=== PATIENT | male | born 1950 | race Caucasian/White ===

== ENCOUNTER → 2016-10-20 | Outpatient (CLI) | payer BC ==
[~2016-10-20] MED LIST: ALPR-412 PO; ASPCH81; SIMV40TA2 PO
--- NOTE | 2016-10-20 15:11 | DIAGNOSTIC IMAGING REPORT ---
RIGHT RIBS UNILATERAL WITH PA CHEST CLINICAL HISTORY: RIB PAIN ON RIGHT SIDE Right trauma. Pain. COMPARISON STUDY: None FINDINGS: Nondisplaced cortical fracture anterior right eighth rib. All remaining ribs are unremarkable. Clear. IMPRESSION: Nondisplaced cortical fracture right eighth rib. Electronically signed by: Rafael Rosenberg M.D. 10/20/2016 3:09 PM Dictated Date/Time: 10/20/2016 3:09 PM
== END | disposition home or self-care (01) ==
LOC: C.RAD1850 14:50
PROVIDERS: ATTEND Physician Assistant
DX: S22.31XA Fracture of one rib, right side, initial encounter for closed fracture (principal); X58.XXXA Exposure to other specified factors, initial encounter

== ENCOUNTER → 2017-04-20 | Outpatient (CLI) | payer BC ==
[2017-04-20 13:18] LABS: BLOOD UREA NITROGEN 18 mg/dl (7-18); BUN/CREATININE RATIO 16.3 (10-20); CALCIUM 9.4 mg/dl (8.5-10.1); CARBON DIOXIDE 21 mmol/L (21-32); CHLORIDE 107 mmol/L (98-107); CHOLESTEROL 160 mg/dl (0-200); GLUCOSE 119 mg/dl (70-99); POTASSIUM 4.2 mmol/L (3.5-5.1); SODIUM 139 mmol/L (136-145); TRIGLYCERIDES 95 mg/dl (0-150); VERY LOW DENSITY LIPOPROT CALC 19 mg/dl
[2017-04-20 13:21] LABS: CHOLESTEROL/HDL RATIO 3.1; HDL CHOLESTEROL 51 mg/dl; LDL CHOLESTEROL CALCULATED 90 mg/dl
[2017-04-20 14:02] LABS: RATIO 4.3 mcg/mg (0-30.0)
== END | disposition home or self-care (01) ==
LOC: C.LAB1850 10:27
PROVIDERS: ATTEND Internal Medicine
DX: E11.9 Type 2 diabetes mellitus without complications (principal)

== ENCOUNTER → 2017-06-16 | Outpatient (CLI) | payer BC ==
[2017-06-16 14:40] LABS: URINE APPEARANCE TURBID (CLEAR); URINE COLOR ORANGE; URINE NITRITE NEG (NEG); URINE SPECIFIC GRAVITY 1.028 (1.000-1.030); UROBILINOGEN NEG (NEG); ZZUR CULT IF INDIC CLEAN CATCH NO
[2017-06-16 14:42] LABS: MANUAL MICROSCOPIC REQUIRED? NO; REVIEW REQ? NO; URINE BILIRUBIN NEG (NEG)
== END | disposition home or self-care (01) ==
LOC: C.LAB1850 12:57
PROVIDERS: ATTEND Internal Medicine
DX: R31.0 Gross hematuria (principal)

== ENCOUNTER → 2017-07-06 | Outpatient (CLI) | payer BC | END | disposition home or self-care (01) | LOC: C.PATHSPEC 17:06 | PROVIDERS: ATTEND Urology | DX: Z31.0 Encounter for reversal of previous sterilization (principal) ==

== ENCOUNTER → 2017-07-22 | Outpatient (CLI) | payer BC ==
[~2017-07-22] MED LIST changes: +ASPCH81X PO; +OXYC7.5T65 PO; +PRS5 PO; +SILD1TAB39 PO; +TAMS0.4C38 PO
[2017-07-22 16:15] LABS: ALBUMIN 3.6 gm/dl (3.4-5.0); ALT/SGPT 40 U/L (12-78); AST/SGOT 17 U/L (15-37); BLOOD UREA NITROGEN 24 mg/dl (7-18); CALCIUM 9.1 mg/dl (8.5-10.1); CARBON DIOXIDE 29 mmol/L (21-32); CREATININE 1.16 mg/dl (0.60-1.40); GLUCOSE 102 mg/dl (70-99); POTASSIUM 4.6 mmol/L (3.5-5.1); SODIUM 139 mmol/L (136-145)
[2017-07-22 16:18] LABS: ALKALINE PHOSPHATASE 82 U/L (45-117); TOTAL PROTEIN 7.3 gm/dl (6.4-8.2)
== END | disposition home or self-care (01) ==
LOC: C.LAB1850 10:55
PROVIDERS: ATTEND Urology
DX: R31.0 Gross hematuria (principal)

== ENCOUNTER → 2017-08-01 | Outpatient (CLI) | payer BC ==
[~2017-08-01] MED LIST changes: -ASPCH81X PO; +OPTIRAY 320 IV PRN; -OXYC7.5T65 PO; -PRS5 PO; -SILD1TAB39 PO; -TAMS0.4C38 PO
--- NOTE | 2017-08-01 11:28 | DIAGNOSTIC IMAGING REPORT ---
ABD/PELVIS COMBO HISTORY: 66 years-old Male R31.0 Gross hematuria with history of recent urinary tract infection COMPARISON: CT abdomen and pelvis 01/29/2008 TECHNIQUE: Multiple axial CT images of the abdomen and pelvis were obtained both with and without the use of 95 mL Optiray 320 utilizing hematuria protocol. A dose lowering technique was used consistent with the principals of MICHELLE. FINDINGS: Linear subsegmental opacities of the inferior segment lingula suggest atelectasis or scarring. There is no pneumatosis or pneumoperitoneum identified. Aortic annular calcifications are noted in addition to coronary arterial disease. The liver, pancreas, gallbladder and adrenal glands are within normal limits. Ill-defined area of low-attenuation of the spleen measuring 6 mm on image 112 series 5 appears unchanged and is likely benign. No suspicious mass lesions of the spleen identified. The precontrast images demonstrate a 6 mm nonobstructing calculus of the inferior pole left kidney. No right-sided renal calculi, ureteral calculi or hydronephrosis. Urine bladder is partially collapsed. The prostate is mildly enlarged with central prostatic calcifications. Phleboliths of the pelvis. No additional focal filling defects identified within the renal collecting systems or ureters. 9 mm low attenuating lesion of the inferior pole right kidney suggests cyst. Moderate atherosclerosis of the aorta. No bulky adenopathy identified. There is no bowel obstruction or focal bowel wall thickening identified. Moderate colonic diverticulosis without diverticulitis, notably within the sigmoid colon. Normal appendix. Fat filled periumbilical hernia is noted, diastases 1.6 cm. Remote burst fracture of T8 is only partially imaged. Bones appear intact. IMPRESSION: 1. 6 mm nonobstructing calculus of the inferior pole left kidney. No evidence of obstructive uropathy or ureteral calculi. 2. Mild prostamegaly. 3. Fat filled periumbilical hernia, diastases 1.6 cm. 4. Moderate sigmoid colon diverticulosis without diverticulitis. The above report was generated using voice recognition software. It may contain grammatical, syntax or spelling errors. Electronically signed by: Cm Garza M.D. 08/01/2017 11:27 AM Dictated Date/Time: 08/01/2017 11:15 AM
== END | disposition home or self-care (01) ==
LOC: C.CTS 10:40
PROVIDERS: ATTEND Urology
DX: R31.0 Gross hematuria (principal)

== ENCOUNTER → 2018-02-21 | Outpatient (CLI) | payer BC ==
[~2018-02-21] MED LIST changes: -ALPR-412 PO; -ASPCH81; +ASPCH81X PO; -OPTIRAY 320 IV PRN; +OXYC7.5T65 PO; +PRS5 PO; +SILD1TAB39 PO; +TAMS0.4C38 PO
--- NOTE | 2018-02-21 14:07 | DIAGNOSTIC IMAGING REPORT ---
KUB CLINICAL HISTORY: Nephrolithiasis. FINDINGS: 2 AP supine abdominal radiograph is are compared to study dated 02/10/2018 and correlated with abdominal CT dated 01/02/2018. There is a nonobstructed abdominal bowel gas pattern. No calcifications are seen projecting over either kidney. A 4 mm calculus is again seen projecting over the left vesicoureteral junction. Additional pelvic phleboliths are observed. The bony structures appear intact. IMPRESSION: A 4 mm calculus is again seen projecting over the left vesicoureteral junction. Electronically signed by: Chandler Silver M.D. 02/21/2018 2:06 PM Dictated Date/Time: 02/21/2018 2:04 PM
== END | disposition home or self-care (01) ==
LOC: C.RADBC 13:41
PROVIDERS: ATTEND Urology
DX: N20.0 Calculus of kidney (principal)

== ENCOUNTER 2024-08-30 09:47 | Observation (INO) ==
--- NOTE | 2024-08-30 09:59 | Emergency Department Note ---
Impression & Plan Closed fracture of manubrium, Fall ED Provider Note CHIEF COMPLAINT: Fall HISTORY OF PRESENTING ILLNESS: This 73-year-old male patient presents to the emergency department with his fiance for evaluation after a fall. The patient states that he was in his socks in the laundry room this morning when his foot went out from under him. He landed on his back. He is unsure if he hit his head, but denies loss of consciousness. He is not on any blood thinners, but is on aspirin. He was able to get himself up without a prolonged downtime. He is now complaining of pain in his chest. He initially had pain in his back, but that has resolved. He denies any SOB. Denies any chest pain or SOB prior to the fall. Denies any abdominal pain. Denies nausea or vomiting. Denies any pain or injury of his arms or legs. He rates his discomfort a 6/10. He denies any significant cardiac history other than a "functional murmur." The patient states it was a mechanical fall and denies any symptoms prior to the fall. REVIEW OF SYSTEMS: See HPI for pertinent positives and pertinent negatives. ALLERGIES: Penicillin - rash when he was young MEDICATIONS: Aspirin, Simvastatin PAST MEDICAL HISTORY: See below PHYSICAL EXAM: VITALS: Vitals are noted on the nurse's note and reviewed by myself. GENERAL: No acute distress, non-diaphoretic. SKIN: The skin was without obvious lacerations or abrasions. Capillary reflex less than 2 seconds. HEAD: Normocephalic. No scalp tenderness or step-offs felt. EYES: Pupils equal round and reactive to light and accommodation. Conjunctivae without injection, sclerae without icterus. Extraocular movements intact. No nystagmus. NOSE: Patent without discharge. No sinus tenderness. No septal hematoma or bleeding. MOUTH: Mucous membranes moist. Pharynx without erythema or exudate. Uvula midline. Airway patent. Tongue does not deviate. NECK: Supple without nuchal rigidity. Cervical spine is nontender. Full range of motion of the neck without tenderness. HEART: Regular rate and rhythm without murmurs gallops or rubs. LUNGS: Clear to auscultation bilaterally without wheezes, rales or rhonchi. No retractions or accessory muscle use. CHEST: The patient is tender to palpation over the sternum as well as the right anterior upper chest wall. No fracture crepitus or flail chest noted. ABDOMEN: Positive bowel sounds x 4. Normal tympanic percussion. Soft, nontender, without masses or organomegaly. No guarding or rebound tenderness. No upper abdominal tenderness to palpation. MUSCULOSKELETAL: No tenderness of the thoracic or lumbar spine or paraspinal muscles. No tenderness with pelvic rocking. Full range of motion without tenderness to palpation in all extremities. Normal gait. Strength 5/5 throughout. Peripheral pulses 2+. NEURO: Patient was alert and oriented to person place and time. Normal mental status exam. Normal sensation to light and sharp touch. Cerebellar function intact. No focal neurological deficits. DIFFERENTIAL DIAGNOSIS: Differential diagnosis includes concussion, contusion, fracture, subluxation, dislocation, subdural hematoma, epidural hematoma, intraparenchymal hemorrhage, contusion, ligamentous injury, neurovascular, compartment syndrome, rhabdomyolysis, intra-abdominal injury, splenic rupture, hepatic rupture, rib fractures, cardiac contusion, pneumothorax, hemothorax, cardiac tamponade, intrathoracic injury, neurologic, as well as other pathologies. ED COURSE AND MEDICAL DECISION MAKING: HISTORY FROM INDEPENDENT HISTORIAN: Additional history obtained from the patient's MEDICATIONS GIVEN: Tylenol 1000 mg IV. MONITOR: Continuous cardiac cath lab manager: Order was placed for continuous cardiac cath lab manager. Patient was placed on the cardiac cath lab manager and continuous pulse ox. Patient was noted to be in normal sinus rhythm at an initial rate of 78 bpm per my interpretation. EKG: EKG was interpreted by myself as normal sinus rhythm at 69 bpm with no acute ST or T wave changes. INTERPRETATION OF LABS: I interpreted the labs with full lab results as below in the lab section of this note. Laboratory results pertinent to the emergent complaint are discussed in the MDM section below. The patient was advised to follow up with their PCP and/or specialist(s) for further outpatient monitoring and management of any abnormal results. INTERPRETATION OF IMAGING: Imaging studies were interpreted by myself and read by radiology as per the imaging section of this note. The patient was advised to follow up with their PCP and/or specialist(s) for further outpatient management of any non-emergent abnormal findings. Chest x-ray showed no acute cardiopulmonary abnormalities. CT scan of the head without contrast was negative for acute intracranial abnormality. CT scan of the cervical spine without contrast was negative for acute fracture or subluxation. There are mild superior endplate compression deformities at T1- T3 which are new since 2015, but appear to be chronic. CT scan of the chest with IV contrast showed an acute nondisplaced right manubrial fracture which also extends through the right first costal cartilage. There is acute right second costochondral cartilage fracture. No pneumothorax. Small associated anterior mediastinal hematoma. No active extravasation. No additional acute traumatic findings noted. CONSULTATIONS: Dr. Dugan of trauma surgery at [facility]. On-call hospitalist. [facility] SUMMARY: I examined the patient. The patient stated that he slipped on the laundry room floor in his socks and fell onto his back. The patient states it was a mechanical fall and had no symptoms prior to the fall. He initially had back pain, but that has resolved. No tenderness to palpation of the back on exam. The patient continues with mild anterior chest wall pain. He is unsure whether he hit his head, but there was no loss of consciousness. He is not on any blood thinners. The patient denies any abdominal pain and there is no abdominal tenderness to palpation on exam. An IV lock was placed and labs were drawn. The patient was given Tylenol 1000 mg IV with improvement of his pain. White blood cell count normal at 9.67. Hemoglobin low, but stable at 12.9. Platelet count normal at 278. Coags were normal. I-STAT labs were obtained prior to CT scan. Glucose 120, but CMP otherwise normal. High-sensitivity troponin x 2 were normal. Lipase normal. Urinalysis with 1+ glucose, trace blood, and 3-5 red blood cells. Chest x-ray showed no acute cardiopulmonary abnormalities. CT scan of the head without contrast was negative for acute intracranial abnormality. CT scan of the cervical spine without contrast was negative for acute fracture or subluxation. There are mild superior endplate compression deformities at T1- T3 which are new since 2015, but appear to be chronic. CT scan of the chest with IV contrast showed an acute nondisplaced right manubrial fracture which also extends through the right first costal cartilage. There is acute right second costochondral cartilage fracture. No pneumothorax. Small associated anterior mediastinal hematoma. No active extravasation. No additional acute traumatic findings noted. I spoke with Dr. Dugan of trauma surgery at the [facility] in regards to the patient's CT scan findings. She stated that the patient does not need to be transferred at this time. She states that the fractures on the CT scan do not require any intervention other than pain control and incentive spirometer as an outpatient. However, she did recommend the patient be monitored for low risk of developing a blunt cardiac injury. She stated if the patient has normal repeat troponin, stable repeat hemoglobins, and no arrhythmias on the cardiac cath lab manager, he could be discharged home with symptomatic treatment. I had a meaningful discussion about this patient with Dr. Davis who agrees with my assessment and the treatment plan. I spoke with the on-call hospitalist who agreed to admit this patient for further evaluation and treatment. Please refer to their dictation for further details. The patient's care was transferred in stable condition. DIAGNOSIS: Right manubrial fracture extending through the right first costal cartilage and right second costochondral cartilage fracture Mechanical fall Past Med/Surg History Problem List (Updated 08/30/24 @ 18:30 by Martina Zuniga PA-C) Fall (Acute) Closed fracture of manubrium (Acute) Sternal fracture Anemia, mild Hypersomnia Snoring History of colon polyps Retained foreign body (Acute) Hernia Ureteric stone (Acute) Left knee pain (Acute) Insomnia (Acute) Inhibited sexual excitement (Acute) Gross hematuria (Acute) Dysthymic disorder (Acute) History of kidney stones Right leg numbness Gout hx Dyslipidemia Benign prostatic hyperplasia with urinary obstruction (Acute) Diabetes mellitus type II, controlled (Acute) diet controlled Medical History History of COVID-19 Kidney stones Tinnitus of both ears Migraine Tick bite Surgical History S/P adenoidectomy Lump in neck History of lithotripsy History of colonoscopy History of tooth extraction History of tonsillectomy Family History Mother No pertinent family history Father No pertinent family history Grandfather (Maternal) Myocardial infarction Uncle Myocardial infarction Son Colitis Denies family history of Ovarian cancer Prostate cancer Breast cancer Colorectal cancer Social History Smoking Status: Never smoker Second Hand Exposure: No; Do You Dip or Chew Tobacco: No; Hx Alcohol Use: Yes Alcohol type: beer Hx Substance Use: No Preferred Language: Tuvaluan Communication Ability: Effective Visual Impairment: No Limitations Hearing Ability: Normal Manager Unix Required: No Beliefs That Will Affect Care: None marital status: / Current Living Situation: Significant Other current occupational status: retired Feels Safe at Home: Yes Childhood Exposure to Second-Hand Smoke: No Dental Care, Regularly: Yes Physical Activity Frequency: Daily Seatbelt Use: always Sunscreen Use: Yes Assistive Devices: Glasses Allergies Allergies Allergy/AdvReac Type Severity Reaction Status Date / Time Penicillins Allergy Intermediate Rash Verified 05/15/24 15:03 Home Meds Home Medications Medication Instructions Recorded Confirmed aspirin 81 mg tablet,delayed 81 mg PO HS #0 tabs 01/02/18 08/30/24 release (Ophelia Low Dose Aspirin) multivitamin 1 tab PO QAM 03/17/18 08/30/24 Previous Rx's Medication Instructions Recorded simvastatin 40 mg tablet 40 mg PO HS #90 tabs 12/06/23 sildenafil (pulm.hypertension) 20 20 mg PO UD PRN Sexual Activity 02/01/24 mg tablet #30 tabs Results & Data (ED) Vital Signs Vital Signs - 24 hr 08/30/24 09:55 08/30/24 10:07 08/30/24 10:38 Temperature 36.5 C Temperature Source Oral Pulse Rate 80 76 Pulse Rate [Apical] Pulse Rhythm [Apical] Pulse Strength [Apical] Respiratory Rate 18 Respiratory Effort / Characteristics Respiratory Depth Blood Pressure 179/94 H Blood Pressure [Right Arm] Blood Pressure Mean 122 Blood Pressure Mean [Right Arm] Blood Pressure Position Sitting Blood Pressure Position [Right Arm] Pulse Oximetry 97 96 Oxygen Delivery Method Room Air Room Air Sepsis Recent Fever Within 48 Hours No Sepsis New/Unexplained Change in Mental Status No Sepsis Action Taken by Nursing No Action Required 08/30/24 11:47 08/30/24 13:00 Temperature Temperature Source Pulse Rate Pulse Rate [Apical] 64 62 Pulse Rhythm [Apical] Regular Pulse Strength [Apical] Normal Respiratory Rate 17 17 Respiratory Effort / Characteristics Non-Labored Spontaneous Non-Labored Spontaneous Respiratory Depth Normal Normal Blood Pressure Blood Pressure [Right Arm] 139/69 154/8 H Blood Pressure Mean Blood Pressure Mean [Right Arm] 92 56 Blood Pressure Position Blood Pressure Position [Right Arm] Semi-fowlers Pulse Oximetry 95 95 Oxygen Delivery Method Room Air Room Air Sepsis Recent Fever Within 48 Hours Sepsis New/Unexplained Change in Mental Status Sepsis Action Taken by Nursing Laboratory Data 08/30/24 10:36 08/30/24 10:36 Lab Results 08/30/24 08/30/24 08/30/24 Range/Units 10:36 10:42 13:03 WBC 9.67 (4.8-10.8) K/ul RBC 4.23 L (4.70-6.10) M/uL Hgb 12.9 L (14.0-18.0) g/dl POC Hgb 13.6 L (14.0-18.0) g/dl Hct 39.5 L (42.0-52.0) % POC Hct 40 L (42-52) % MCV 93.4 (80.0-100.0) fL MCH 30.5 (25.0-34.0) pg MCHC 32.7 (32.0-36.0) g/dL RDW Std Deviation 44.2 (36.4-46.3) fL RDW Coeff of Nika 13.1 (11.5-14.5) % Plt Count 278 (130-400) K/uL MPV 9.5 (9.4-12.4) fL Immature Gran % (Auto) 0.5 % Neut % (Auto) 73.9 % Lymph % (Auto) 14.1 % [place] % (Auto) 8.1 % Eos % (Auto) 3.1 % Baso % (Auto) 0.3 % Neut # (Auto) 7.15 H (1.40-6.50) K/uL Lymph # (Auto) 1.36 (1.20-3.40) K/uL [place] # (Auto) 0.78 H (0.11-0.59) K/uL Eos # (Auto) 0.30 (0.00-0.50) K/uL Baso # (Auto) 0.03 (0.00-0.20) K/uL Immature Gran # (Auto) 0.05 (0.01-0.20) K/uL PT 10.2 (9.0-12.0) Seconds INR 0.9 (0.9-1.1) APTT 25 (21-31) Seconds PTT Ratio 0.9 POC Sodium 139 (135-144) mmol/L Sodium 138 (136-145) mmol/L POC Potassium 4.4 (3.3-5.0) mmol/L Potassium 4.4 (3.5-5.1) mmol/L POC Chloride 105 (101-112) mmol/L Chloride 106 (98-107) mmol/L Carbon Dioxide 28 (21-32) mmol/L POC Total CO2 26 (24-31) mmol/L Anion Gap 4 (3-11) POC Anion Gap 14.0 L (16-25) mmol/L POC BUN 19 H (7-18) mg/dl BUN 20 (6-23) mg/dl Creatinine 1.19 (0.6-1.4) mg/dl POC Creatinine 1.2 (0.6-1.3) mg/dl Est Cr Clr Drug Dosing 63.6 ml/min eGFR 64.50 BUN/Creatinine Ratio 16.8 (10-20) Glucose 120 H (70-99(Fasting)) mg/dl POC Glucose (other) 120 H (70-99) mg/dl Calcium 9.5 (8.6-10.3) mg/dl POC Ioniz Calcium Claudia 1.23 (1.12-1.32) mmol/l Total Bilirubin 0.3 (0.2-1.0) mg/dl AST 19 (13-39) U/L ALT 16 (7-52) U/L Alkaline Phosphatase 66 (34-104) U/L Troponin I High Sens 10.8 10.7 (0-20) pg/ml Total Protein 7.2 (6.0-8.3) gm/dl Albumin 4.0 (3.4-5.0) gm/dl Globulin 3.2 (2.5-4.0) gm/dl Albumin/Globulin Ratio 1.3 (0.9-2) Lipase 20 (11-82) U/L Urine Color Yellow Urine Appearance Clear (Clear) Urine pH 7.5 (4.5-7.5) Ur Specific [place] 1.022 (1.000-1.030) Urine Protein Negative (Negative) Urine Glucose (UA) 1+ H (Negative) Urine Ketones Negative (Negative) Urine Blood Trace H (Negative) Urine Nitrite Negative (Negative) Urine Bilirubin Negative (Negative) Urine Urobilinogen Negative (Negative) Ur Leukocyte Esterase Negative (Negative) Urine WBC (Auto) 0-5 (0-5) /hpf Urine RBC (Auto) 3-5 H (0-2) /hpf U Hyaline Cast (Auto) 0-2 (0-2) /lpf U Epithel Cells (Auto) 0-2 (0-2) /hpf Urine Bacteria (Auto) None Seen (None Seen) Administered Medications Discontinued Medications Acetaminophen (Ofirmev) 1,000 mg in 100 mls @ 400 mls/hr IV NOW STA Stop: 08/30/24 10:22 Last Infusion: 08/30/24 12:19 Dose: Infused Documented By: Admin: 08/30/24 10:45 Dose: 400 mls/hr Documented By: EVARISTO Ioversol (Optiray 320 100ml) 94 ml IV ONCE ONE Stop: 08/30/24 11:02 Last Admin: 08/30/24 11:01 Dose: 94 ml Documented By: SWATI Lidocaine (Lidocaine 5% 1 Patch) 1 patch TD NOW STA Stop: 08/30/24 14:19 Last Admin: 08/30/24 15:14 Dose: 1 patch Documented By: SRL Imaging Data Radiologist's Impression: Cervical Spine CT 08/30/24 10:07 CT cervical spine wo con CLINICAL HISTORY: 73 years-old Male with Trauma. Acute neck injury status post fall COMPARISON: Chest CT of same day, cervical spine radiographs 09/28/2023, CT chest 07/04/2015 TECHNIQUE: Multiple axial CT images of the cervical spine were obtained without contrast. A dose lowering technique was utilized adhering to the principles of ALARA. FINDINGS: Mild multilevel intervertebral disc space narrowing with mild to moderate spondylitic spurring and facet arthrosis. There is vacuum disc phenomenon with bridging disc osteophyte complex at the C6-C7 level. Multiple endplate compression at T1-T3 without retropulsion has progressed from the 2015 comparison, likely chronic. Central canal and foraminal narrowing is suboptimally evaluated by CT. The cervical soft tissues appear unremarkable. The visualized lung apices appear clear. IMPRESSION: 1. No acute cervical spine fracture or subluxation. 2. Mild superior endplate compression deformities at T1-T3 are new from 2015, favored to be chronic. ACT 112: Negative or not required by law. The above report was generated using voice recognition software. It may contain grammatical, syntax or spelling errors. Electronically signed by: Dhaval Garza M.D. 08/30/2024 11:[address] 08/30/24 10:07 CT OF THE CHEST WITH IV CONTRAST CLINICAL HISTORY: Fall, chest pain, back pain resolved COMPARISON STUDY: Chest radiograph May 24, 2019. Chest CT July 04, 2015. TECHNIQUE: Following IV administration of 94 mL of Optiray, helical axial images of the chest were obtained. Sagittal and coronal reconstructions were viewed as well as maximal intensity projections on an independent 3-D workstation. Automated exposure control was utilized for the study. A dose lowering technique was utilized adhering to the principles of ALARA. CT DOSE: 2085.84 mGy.cm FINDINGS: There is no evidence for traumatic injury to the thoracic aorta. There is an acute nondisplaced right manubrial fracture. This fracture also extends through the right first costal cartilage. A small associated anterior mediastinal hematoma is present. There is an acute fracture of the right second costal cartilage. Several old right-sided rib fractures are present. There is no pneumothorax or pleural effusion. No pulmonary contusion is present. There are no pulmonary nodules. Old T8 compression fractures unchanged. No acute thoracic spine fractures are present. The heart is mildly enlarged. There is moderate coronary artery calcification. IMPRESSION: 1. Acute nondisplaced right manubrial fracture which also extends through the right first costal cartilage. Acute right second costochondral cartilage fracture. No pneumothorax. Small associated anterior mediastinal hematoma. No active extravasation. 2. No additional acute traumatic findings within the chest. ACT 112: Negative or not required by law. Electronically signed by: Hector Villeda M.D. 08/30/2024 11:36 AM Chest X-Ray 08/30/24 10:07 XR chest 1V portable HISTORY: 73 years-old Male Chest pain, fall acute chest pain status post fall COMPARISON: 01/31/2018 TECHNIQUE: AP view of the chest FINDINGS: Cardiomediastinal and hilar silhouettes are within normal limits. No pneumothorax, pleural effusion or airspace consolidation. Bones appear grossly intact. Spondylitic spurring of the spine. IMPRESSION: No acute process. ACT 112: Negative or not required by law. The above report was generated using voice recognition software. It may contain grammatical, syntax or spelling errors. Electronically signed by: Dhaval Garza M.D. 08/30/2024 10:[address] 08/30/24 10:07 CT head/brain wo con CLINICAL HISTORY: 73 years-old Male with Trauma. Acute head trauma TECHNIQUE: Multiple axial CT images of the head were obtained without contrast. A dose lowering technique was utilized adhering to the principles of ALARA. COMPARISON: 08/16/[address], brain MRI 12/25/2020 FINDINGS: No acute intracranial hemorrhage, midline shift, intracranial mass, hydrocephalus, territorial ischemia or abnormal extra-axial collection. Involutional changes. The calvarium is intact. The paranasal sinuses, mastoid air cells, and middle ear cavities are clear. IMPRESSION: No acute intracranial abnormality or calvarial fracture. ACT 112: Negative or not required by law. The above report was generated using voice recognition software. It may contain grammatical, syntax or spelling errors. Electronically signed by: Dhaval Garza M.D. 08/30/2024 11:25 AM Discharge Plan Visit Data Chief Complaint: Fall Stated Complaint: FALL THIS AM, LANDED ON BACK, CHEST HURTS NOW ED Provider: Zaheer Davis ED Midlevel Provider: Martina Zuniga Discharge Problem: Closed fracture of manubrium, Fall Patient Disposition: Admitted As Inpatient Condition: Good Discharge Instructions Interventions: ED Discharge Assessment Last Done: 08/30/24 15:58 Discharge Problem: Closed fracture of manubrium Qualifiers: Encounter type: initial encounter Qualified Code(s): S22.21XA - Fracture of manubrium, initial encounter for closed fracture Fall Qualifiers: Encounter type: initial encounter Qualified Code(s): W19.XXXA - Unspecified fall, initial encounter
--- NOTE | 2024-08-30 10:30 | XRay Report ---
XR chest 1V portable HISTORY: 73 years-old Male Chest pain, fall acute chest pain status post fall COMPARISON: 01/31/2018 TECHNIQUE: AP view of the chest FINDINGS: Cardiomediastinal and hilar silhouettes are within normal limits. No pneumothorax, pleural effusion o r airspace consolidation. Bones appear grossly intact. Spondylitic spurring of the spine. IMPRESSION: No acute process. ACT 112: Negative or not required by law. The above report was generated using voice recognition software. It may contain grammatical, syntax o r spelling errors. Electronically signed by: Dhaval Garza M.D. 08/30/2024 10:28 AM
[2024-08-30] MEDS: ACETAMINOPHEN 1,000 MG/100 ML VIAL IV STA (10:45)
[2024-08-30 10:54] LABS: iSTAT Creatinine 1.2 mg/dl (0.6-1.3); iSTAT Hemoglobin 13.6 g/dl (14.0-18.0); iSTAT Ionized Calcium 1.23 mmol/l (1.12-1.32); iSTAT Potassium 4.4 mmol/L (3.3-5.0)
[2024-08-30] MEDS: OPTIRAY 320 100ml IV ONE (11:01)
[2024-08-30 11:09] LABS: Appearance Urine Clear (Clear); Bacteria Urine Automated None Seen (None Seen); Bilirubin Urine Negative (Negative); Blood Urine Trace (Negative); Cast Urine Automated 0-2 /lpf (0-2); Color Urine Yellow; Epithelial Cell Urine Auto 0-2 /hpf (0-2); Glucose Urine UA 1+ (Negative); Ketones Urine Negative (Negative); Leukocyte Esterase Urine Negative (Negative); Nitrite Urine Negative (Negative); Protein Urine Negative (Negative); Specific Gravity Urine 1.022 (1.000-1.030); Urobilinogen Urine Negative (Negative); WBC Urine Automated 0-5 /hpf (0-5); pH Urine 7.5 (4.5-7.5)
[2024-08-30 11:12] LABS: Basophils # (auto) 0.03 K/uL (0.00-0.20); Basophils % (auto) 0.3 %; Eosinophils % (auto) 3.1 %; Hematocrit (blood only) 39.5 % (42.0-52.0); Hemoglobin 12.9 g/dl (14.0-18.0); Immature Granulocytes # (auto) 0.05 K/uL (0.01-0.20); Immature Granulocytes % (auto) 0.5 %; Lymphocytes # (auto) 1.36 K/uL (1.20-3.40); Lymphocytes % (auto) 14.1 %; Mean Corpuscular Hemoglobin 30.5 pg (25.0-34.0); Mean Corpuscular Hgb Conc 32.7 g/dL (32.0-36.0); Mean Corpuscular Volume 93.4 fL (80.0-100.0); Mean Platelet Volume 9.5 fL (9.4-12.4); Monocytes # (auto) 0.78 K/uL (0.11-0.59); Monocytes % (auto) 8.1 %; Neutrophils # (auto) 7.15 K/uL (1.40-6.50); Neutrophils % (auto) 73.9 %; Platelet Count 278 K/uL (130-400); RDW Coefficient of Variation 13.1 % (11.5-14.5); RDW Standard Deviation 44.2 fL (36.4-46.3); Red Blood Count 4.23 M/uL (4.70-6.10); White Blood Count 9.67 K/ul (4.8-10.8)
[2024-08-30 11:24] LABS: Albumin Globulin Ratio 1.3 (0.9-2); BUN Creatinine Ratio 16.8 (10-20); Bilirubin,Total 0.3 mg/dl (0.2-1.0); Calcium 9.5 mg/dl (8.6-10.3); Creatinine Clr Calc Pharmacy 63.6 ml/min; Globulin 3.2 gm/dl (2.5-4.0); Potassium 4.4 mmol/L (3.5-5.1); Total Protein 7.2 gm/dl (6.0-8.3)
--- NOTE | 2024-08-30 11:26 | CT Scan Report ---
CT head/brain wo con CLINICAL HISTORY: 73 years-old Male with Trauma. Acute head trauma TECHNIQUE: Multiple axial CT images of the head were obtained without contrast. A dose lowering tech nique was utilized adhering to the principles of ALARA. COMPARISON: 08/16/[address], brain MRI 12/25/2020 FINDINGS: No acute intracranial hemorrhage, midline shift, intracranial mass, hydrocephalus, territorial ischem ia or abnormal extra-axial collection. Involutional changes. The calvarium is intact. The paranasal sinuses, mastoid air cells, and middle ear cavities are clear . IMPRESSION: No acute intracranial abnormality or calvarial fracture. ACT 112: Negative or not required by law. The above report was generated using voice recognition software. It may contain grammatical, syntax o r spelling errors. Electronically signed by: Dhaval Garza M.D. 08/30/2024 11:25 AM
[2024-08-30 11:30] LABS: Troponin I High Sensitivity 10.8 pg/ml (0-20)
--- NOTE | 2024-08-30 11:38 | CT Scan Report ---
CT OF THE CHEST WITH IV CONTRAST CLINICAL HISTORY: Fall, chest pain, back pain resolved COMPARISON STUDY: Chest radiograph May 24, 2019. Chest CT July 04, 2015. TECHNIQUE: Following IV administration of 94 mL of Optiray, helical axial images of the chest were o btained. Sagittal and coronal reconstructions were viewed as well as maximal intensity projections o n an independent 3-D workstation. Automated exposure control was utilized for the study. A dose low ering technique was utilized adhering to the principles of ALARA. CT DOSE: 2085.84 mGy.cm FINDINGS: There is no evidence for traumatic injury to the thoracic aorta. There is an acute nondisp laced right manubrial fracture. This fracture also extends through the right first costal cartilage. A small associated anterior mediastinal hematoma is present. There is an acute fracture of the right second costal cartilage. Several old right-sided rib fractures are present. There is no pneumothorax or pleural effusion. No pulmonary contusion is present. There are no pulmonary nodules. Old T8 compre ssion fractures unchanged. No acute thoracic spine fractures are present. The heart is mildly enlarge d. There is moderate coronary artery calcification. IMPRESSION: 1. Acute nondisplaced right manubrial fracture which also extends through the right first costal cart ilage. Acute right second costochondral cartilage fracture. No pneumothorax. Small associated anterio r mediastinal hematoma. No active extravasation. 2. No additional acute traumatic findings within the chest. ACT 112: Negative or not required by law. Electronically signed by: Hector Villeda M.D. 08/30/2024 11:36 AM
--- NOTE | 2024-08-30 11:39 | CT Scan Report ---
CT cervical spine wo con CLINICAL HISTORY: 73 years-old Male with Trauma. Acute neck injury status post fall COMPARISON: Chest CT of same day, cervical spine radiographs 09/28/2023, CT chest 07/04/2015 TECHNIQUE: Multiple axial CT images of the cervical spine were obtained without contrast. A dose low ering technique was utilized adhering to the principles of ALARA. FINDINGS: Mild multilevel intervertebral disc space narrowing with mild to moderate spondylitic spurr ing and facet arthrosis. There is vacuum disc phenomenon with bridging disc osteophyte complex at the C6-C7 level. Multiple endplate compression at T1-T3 without retropulsion has progressed from the 201 5 comparison, likely chronic. Central canal and foraminal narrowing is suboptimally evaluated by CT. The cervical soft tissues appear unremarkable. The visualized lung apices appear clear. IMPRESSION: 1. No acute cervical spine fracture or subluxation. 2. Mild superior endplate compression deformities at T1-T3 are new from 2015, favored to be chronic. ACT 112: Negative or not required by law. The above report was generated using voice recognition software. It may contain grammatical, syntax o r spelling errors. Electronically signed by: Dhaval Garza M.D. 08/30/2024 11:38 AM
[2024-08-30 11:41] LABS: INR 0.9 (0.9-1.1); Partial Thromboplastin Ratio 0.9; Partial Thromboplastin Time 25 Seconds (21-31); Prothrombin Time 10.2 Seconds (9.0-12.0)
--- NOTE | 2024-08-30 11:47 | Emergency Department Note ---
ED Visit Note I was consulted by the Advanced Practice Provider. I personally made/approved the management plan and take responsibility for the patient management. I performed a substantive portion of the visit. This includes the aspects of: -History/Physical/Personally seeing the patient -MDM .
--- NOTE | 2024-08-30 13:57 | History & Physical Report ---
Date of Service August 30, 2024 Assessment & Plan (1) Sternal fracture: Plan: 73-year-old male with minimal past medical history of hyperlipidemia well- controlled who presents after a mechanical fall when he slipped doing laundry while wearing socks and landed on his back and sustained a first/second rib fracture/manubrial fracture. He is recommended for observation, fractures nondisplaced and patient was not recommended for transfer after evaluation by [facility] trauma team. Fall Mechanical, while wearing socks in the laundry room. No presyncope/syncope CTC-spine: No acute cervical spine fracture or subluxation CTchest with contrast: Acute nondisplaced right manubrial fracture extending through the first costal cartilage. Acute right second costochondral cartilage fracture. No pneumothorax. Small amount of associated mediastinal hematoma. No active extravasation. No additional traumatic findings of the chest. Troponin is normal, EKG sinus CThead: No acute findings Case was reviewed by [facility] trauma surgery Dr. Dugan. Recommended for observation for arrhythmias and agree with repeating troponin, patient does not require transfer at this time. Conservative management. Manubrial fracture, rib fracture CT shows acute nondisplaced right manubrial fracture extending through the first costal cartilage, and right second osteochondral cartilage fracture No flail chest SpO2 is normal on room air Incentive spirometry ordered Multimodal pain control. Tylenol, lidocaine patch ordered Breakthrough oxycodone third line ordered if needed Adequate pain control at time of reassessment Continue incentive spirometry hourly goal 1500 cc Ice affected area Ambulate, ad dianna. as tolerated and out of chair at least 3 times daily with meals Chronic stable issues: BPH: Bladder scan as needed Hyperlipidemia: Continue simvastatin. Aspirin temporarily held due to hematoma. Resume this on discharge if no bleeding complications Prediabetes: No medications, diet controlled. BSG within goal on admission. Trend daily if above 180 then can add SSI DVT prophylaxis: Pharmacal prophylaxis contraindicated, SCDs Disposition: Med/telemetry for arrhythmia monitoring CODE STATUS: Full code Diet: Regular (2) Benign prostatic hyperplasia with urinary obstruction: History of Present Illness Primary Care Provider: Abimael Wilson MD Louie is 73-year-old male with a past medical history of type II DM diet controlled, hyperlipidemia who presents after he slipped while wearing socks in the laundry room without syncope/presyncope and landed on his back reportedly did not hit his chest but who on assessment was found to have a manubrial fracture. Was recommended for observation overnight. Case was reviewed by [facility] trauma surgery Dr. Dugan. Patient was not recommended for transfer. Was recommended for observation for 24 hours for any potential arrhythmia and repeat troponin, otherwise can be managed conservatively and followed for 24 hours and then discharged outpatient follow-up. Patient was subsequently recommended for hospitalist admission. Louie is seen at the bedside. Reports he was doing laundry working in socks when he slipped and fell and struck his back. He did not strike or land on his chest or hit anything on the way down but did have pain on the right upper chest after falling. He is not in any issues with chest pain gets up at 430 every morning walks vigorously and has not had any limiting angina, shortness of breath, or sweating. He takes a aspirin for primary prevention but has never had a stroke or heart attack. Take simvastatin and otherwise is healthy and does not take any medications. Does not use tobacco or alcohol products. No history of bleeding problems. No history of blood clots. He did not hit his head or lose consciousness. He had no lightheadedness/dizziness/increased/presyncope preceding this episode Medical History: Reviewed Medications: Reviewed Surgical History: Reviewed Family history: Reviewed Allergies: Reviewed Social History: Reviewed Code Status:Full Allergies Allergy/AdvReac Type Severity Reaction Status Date / Time Penicillins Allergy Intermediate Rash Verified 05/15/24 15:03 Home Medications Medication Instructions Recorded Confirmed Type aspirin 81 mg tablet,delayed 81 mg PO HS #0 tabs 01/02/18 08/30/24 History release (Ophelia Low Dose Aspirin) multivitamin 1 tab PO QAM 03/17/18 08/30/24 History simvastatin 40 mg tablet 40 mg PO HS #90 tabs 12/06/23 08/30/24 Rx sildenafil (pulm.hypertension) 20 20 mg PO UD PRN Sexual Activity 02/01/24 08/30/24 Rx mg tablet #30 tabs Past Med/Surg History Problem List (Updated 08/30/24 @ 14:15 by Agustín Sanders MD) Sternal fracture Anemia, mild Hypersomnia Snoring History of colon polyps Retained foreign body (Acute) Hernia Ureteric stone (Acute) Left knee pain (Acute) Insomnia (Acute) Inhibited sexual excitement (Acute) Gross hematuria (Acute) Dysthymic disorder (Acute) History of kidney stones Right leg numbness Gout hx Dyslipidemia Benign prostatic hyperplasia with urinary obstruction (Acute) Diabetes mellitus type II, controlled (Acute) diet controlled Medical History History of COVID-19 Kidney stones Tinnitus of both ears Migraine Tick bite Surgical History S/P adenoidectomy Lump in neck History of lithotripsy History of colonoscopy History of tooth extraction History of tonsillectomy Family History Mother No pertinent family history Father No pertinent family history Grandfather (Maternal) Myocardial infarction Uncle Myocardial infarction Son Colitis Denies family history of Ovarian cancer Prostate cancer Breast cancer Colorectal cancer Social History Smoking Status: Never smoker Second Hand Exposure: No; Do You Dip or Chew Tobacco: No; Hx Alcohol Use: Yes Alcohol type: beer Hx Substance Use: No Preferred Language: Nepalese Communication Ability: Effective Visual Impairment: No Limitations Hearing Ability: Normal Director Of Orthopedics Required: No Beliefs That Will Affect Care: None marital status: / Current Living Situation: Significant Other current occupational status: retired Feels Safe at Home: Yes Childhood Exposure to Second-Hand Smoke: No Dental Care, Regularly: Yes Physical Activity Frequency: Daily Seatbelt Use: always Sunscreen Use: Yes Assistive Devices: Glasses Physical Exam Physical Exam: General: A&Ox3. NAD. Cooperative. HEENT: Atraumatic, normocephalic. Pulm: CTAB A&P. -wheezes, -rales, -rhonchi. Symmetrical chest rise. No increased work of breathing. No respiratory distress. Thorax: No obvious deformity. Tender to palpation at the right parasternal border/first and second rib junction Cardiac: RRR, -mrg. Radial pulses intact and symmetrical. Abdominal: Nontender, nondistended, soft. BS present. Extremities: Moves all extremities equally, neurovascularly intact with full strength in upper and lower extremities Results & Data Results & Data Vital Signs (Past 12 Hours) Vital Signs Temp Pulse Pulse Resp BP BP Pulse Ox 08/30/24 13:00 62 17 154/8 H 95 02/13/25 11:47 64 17 139/69 95 08/30/24 10:38 96 08/30/24 10:07 76 08/30/24 09:55 36.5 C 80 18 179/94 H 97 O2 Del Method 08/30/24 13:00 Room Air 08/30/24 11:47 Room Air 08/30/24 10:38 Room Air 08/30/24 10:07 08/30/24 09:55 Room Air PG Care Time/CCT Total # of Minutes Spent Total Time Spent with Patient: Total time spent is greater than 50% in coordination of care (as documented) at patient's floor/unit and/or counseling patient: Coding Level of Care Code 93349 INT INP/OBS CARE 375MIN Diagnoses Sternal fracture S22.20XA Benign prostatic hyperplasia with urinary obstruction N40.1; N13.8
[2024-08-30] MEDS: LIDOCAINE 5% 1 PATCH TD STA (15:14)
--- NOTE | 2024-08-30 15:28 | Electrocardiogram Report ---
Test Reason : Blood Pressure : */* mmHG Vent. Rate : 69 BPM Atrial Rate : 69 BPM P-R Int : 174 ms QRS Dur : 76 ms QT Int : 364 ms P-R-T Axes : 46 -8 32 degrees QTcB Int : 390 ms Normal sinus rhythm Poor R wave progression, consider anterior NH vs. lead placement vs. LVH Abnormal ECG When compared with ECG of 02-Nov-2022 12:34, No significant change was found Confirmed by Abimael Henriquez ([id number]) on 08/30/2024 3:28:25 PM Referred By: Confirmed By: Abimael Henriquez
[2024-08-30] MEDS: ACETAMINOPHEN 500 MG TAB PO PRN (19:38)
[2024-08-30] MEDS: SIMVASTATIN 40 MG TAB PO SCH (19:38)
[2024-08-31] MEDS: oxyCODONE HCL IR 5 MG TAB (IMMEDIATE RELEASE) PO PRN (03:52)
[2024-08-31 09:18] LABS: Basophils # (auto) 0.04 K/uL (0.00-0.20); Basophils % (auto) 0.5 %; Eosinophils # (auto) 0.31 K/uL (0.00-0.50); Eosinophils % (auto) 4.1 %; Hematocrit (blood only) 38.2 % (42.0-52.0); Hemoglobin 12.8 g/dl (14.0-18.0); Immature Granulocytes # (auto) 0.05 K/uL (0.01-0.20); Immature Granulocytes % (auto) 0.7 %; Lymphocytes # (auto) 1.32 K/uL (1.20-3.40); Lymphocytes % (auto) 17.5 %; Mean Corpuscular Hemoglobin 30.5 pg (25.0-34.0); Mean Corpuscular Hgb Conc 33.5 g/dL (32.0-36.0); Mean Platelet Volume 9.5 fL (9.4-12.4); Monocytes # (auto) 0.66 K/uL (0.11-0.59); Monocytes % (auto) 8.7 %; Neutrophils # (auto) 5.18 K/uL (1.40-6.50); Neutrophils % (auto) 68.5 %; Platelet Count 251 K/uL (130-400); White Blood Count 7.56 K/ul (4.8-10.8)
[2024-08-31 09:42] LABS: BUN Creatinine Ratio 15.8 (10-20); Calcium 9.2 mg/dl (8.6-10.3); Creatinine Clr Calc Pharmacy 72.7 ml/min; Potassium 4.3 mmol/L (3.5-5.1)
[2024-08-31 11:15] VITALS: RESP 20; TEMP 98.8; O2SAT 93
[2024-08-31 11:36] VITALS: BP 174/90; PULSE 60
--- NOTE | 2024-08-31 18:37 | Discharge Summary ---
Discharge Summary Date of Service August 31, 2024 Principal Dx & Hospital Course #1 = Principal Diagnosis (1) Sternal fracture: (2) Benign prostatic hyperplasia with urinary obstruction: Plan 73-year-old male with minimal past medical history of hyperlipidemia well- controlled who presents after a mechanical fall when he slipped doing laundry while wearing socks and landed on his back and sustained a first/second rib fracture/manubrial fracture. He is recommended for observation, fractures nondisplaced and patient was not recommended for transfer after evaluation by [facility] trauma team. Fall Mechanical, while wearing socks in the laundry room. No presyncope/syncope CTC-spine: No acute cervical spine fracture or subluxation CTchest with contrast: Acute nondisplaced right manubrial fracture extending through the first costal cartilage. Acute right second costochondral cartilage fracture. No pneumothorax. Small amount of associated mediastinal hematoma. No active extravasation. No additional traumatic findings of the chest. Troponin is normal, EKG sinus CThead: No acute findings Case was reviewed by [facility] trauma surgery Dr. Dugan. Recommended for observation for arrhythmias and agree with repeating troponin, patient does not require transfer at this time. Conservative management. NSR in 80s on telemetry Manubrial fracture, rib fracture CT shows acute nondisplaced right manubrial fracture extending through the first costal cartilage, and right second osteochondral cartilage fracture No flail chest SpO2 is normal on room air Continue incentive spirometry hourly goal 1500 cc Multimodal pain control. Tylenol, lidocaine patch ordered Breakthrough oxycodone third line ordered if needed Chronic stable issues: BPH: Bladder scan as needed Hyperlipidemia: Continue simvastatin. Aspirin temporarily held due to hematoma. Resume this on discharge if no bleeding complications Prediabetes: No medications, diet controlled. BSG within goal on admission. Trend daily if above 180 then can add SSI DVT prophylaxis: Pharmacal prophylaxis contraindicated, SCDs CODE STATUS: Full code Dispo: discharged home 08/31/24 Admission HPI Per Admitting Provider Louie is 73-year-old male with a past medical history of type II DM diet controlled, hyperlipidemia who presents after he slipped while wearing socks in the laundry room without syncope/presyncope and landed on his back reportedly did not hit his chest but who on assessment was found to have a manubrial fracture. Was recommended for observation overnight. Case was reviewed by [facility] trauma surgery Dr. Dugan. Patient was not recommended for transfer. Was recommended for observation for 24 hours for any potential arrhythmia and repeat troponin, otherwise can be managed conservatively and followed for 24 hours and then discharged outpatient follow-up. Patient was subsequently recommended for hospitalist admission. Louie is seen at the bedside. Reports he was doing laundry working in socks when he slipped and fell and struck his back. He did not strike or land on his chest or hit anything on the way down but did have pain on the right upper chest after falling. He is not in any issues with chest pain gets up at 430 every morning walks vigorously and has not had any limiting angina, shortness of breath, or sweating. He takes a aspirin for primary prevention but has never had a stroke or heart attack. Take simvastatin and otherwise is healthy and does not take any medications. Does not use tobacco or alcohol products. No history of bleeding problems. No history of blood clots. He did not hit his head or lose consciousness. He had no lightheadedness/dizziness/increased/presyncope preceding this episode Medical History: Reviewed Medications: Reviewed Surgical History: Reviewed Family history: Reviewed Allergies: Reviewed Social History: Reviewed Code Status:Full Discharge Exam General: No acute distress, nondiaphoretic, well-developed, well-nourished. Cardiac: Regular rate and rhythm without murmurs gallops or rubs. Chest wall tender to palpation at parasternal border/first and second rib junction. Pulm: Clear to auscultation bilaterally without wheezes, rales or rhonchi. No retractions or accessory muscle use. No increased work of breathing. No respiratory distress. 93% on room air. Abdominal: Soft, nontender, nondistended. Bowel sounds present. Neuro: A&O x3. No focal neurological deficits. Discharge Plan Discharge Items Patient Disposition: Home - Self-Care Reason For Visit: FALL, RIB FXR Discharge Diagnosis: Rib fractures after ground level fall Condition on Discharge: Good Activity: Per Instructions section Non-emergency contact: Primary Care Provider Call non-emergency contact if: you have any medication questions, your symptoms worsen and your pain is not controlled Follow-up/Referrals: Abimael Wilson MD [Primary Care Provider] - 09/10/24 3:00 pm () Diet: Regular Addtl Attending Provider Instructions: Mr. Byrne, You were observed overnight in the hospital after experiencing a ground level fall that resulted in right-sided first and second rib fractures, as well as a fracture of your manubrium (top part of your sternum). Your other imaging was negative, including CT scans of your head and cervical spine. It is important to rest and limit your heavy lifting/activity. Upon discharge from the hospital: * Continue multimodal pain regimen -- Tylenol ([id number]), lidocaine patches every 12 hours, and oxycodone 5 mg every 6 hours as needed for breakthrough pain. * Do NOT drive or operate heavy machinery while taking oxycodone as it is a narcotic medication. * Continue to use the incentive spirometer provided. Try to do the exercises hourly while awake. This will help expand your lungs and reduce risk for infection from developing. * Follow-up with your PCP in 1-2 weeks. Please return to the hospital if you experience any of the following: Chest pain, shortness of breath, difficulty breathing, lightheadedness/dizziness, passing out, confusion, or any other symptoms concerning for you. Home care * Rest. Don't do any heavy lifting or strenuous exertion until the pain goes away. * It hurts to breathe when you have a broken rib. This puts you at risk of getting pneumonia from poor airflow through your lungs. To prevent this: - Take a few very deep breaths once an hour while you're awake. Breathe out through pursed lips as if you are blowing up a balloon. If possible, actually blow up a balloon or a rubber glove. This exercise builds up pressure inside the lung and prevents collapse of the small air sacs of the lung. This exercise may cause some pain at the site of injury. This is normal. - You may have gotten a breathing exercise device called an incentive spirometer. Use it at least 4 times a day, or as directed. * Apply an ice pack over the injured area for 15 to 20 minutes every 1 to 2 hours. Do this for the first 24 to 48 hours. To make an ice pack, put ice cubes in a plastic bag that seals at the top. Wrap the bag in a clean, thin to wel or cloth. Never put ice or an ice pack directly on your skin. Keep using ice packs as needed to ease pain and swelling. * You may use [id number] pain medicine to control pain, unless another pain medicine was prescribed. If you have chronic liver or kidney disease or ever had a stomach ulcer, gastrointestinal bleeding, or take a blood thinner, talk with your healthcare provider before using these medicines. Pending Studies at Discharge: No Stand-Alone Forms: [facility] [place], Smoking Cessation Medications and DC Order Prescriptions: New oxycodone 5 mg Tablet 5 mg PO Q6H PRN (Reason: breakthrough pain) Qty: 30 0RF lidocaine [Lidoderm] 5 % adhesive patch,medicated See Rx Instructions .ROUTE .COMPLEX Qty: 15 0RF Rx Instructions: leave on most painful area for up to 12 hrs Continued aspirin [Ophelia Low Dose Aspirin] 81 mg Tablet,Delayed Release (Dr/Ec) 81 mg PO HS Qty: 0 Patient Comments: Restart in 3-5 days if urine clear simvastatin 40 mg tablet 40 mg PO HS Qty: 90 3RF sildenafil (pulm.hypertension) 20 mg tablet 20 mg PO UD PRN (Reason: Sexual Activity) Qty: 30 0RF Rx Instructions: 20 mg PO TAKE 2-3 TABLETS PRIOR TO SEXUAL ACTIVITY NEEDED multivitamin Tablet 1 tab PO QAM Discharge Orders: Discharge Order (Routine); Ordered 08/31/24 Ordered By: Tena Cortes/Other Patient Handouts: ED Rib Fracture, ED Sternum Fracture Admission Data Admit Date/Time: 08/30/24 14:18 Attending Provider: Jaylan Fairchild Admit Provider: Agustín Sanders Primary Care Provider: Abimael Wilson Other Interventions: Discharge Summary Assessment (RN) Last Done: 08/31/24 11:33 Hospital Stay Data Consultations 08/30/24 13:30 ED Decision to Admit Stat Diagnostic Imagining Performed 08/30/24 10:07 CT cervical spine wo con Stat CT chest diagnostic w con Stat CT head/brain wo con Stat Pending Results Patient Have Any Pending Studies at Discharge: No Discharge Instructions Given to Patient (Per Discharging Provider) Cesar Calloway were observed overnight in the hospital after experiencing a ground level fall that resulted in right-sided first and second rib fractures, as well as a fracture of your manubrium (top part of your sternum). Your other imaging was negative, including CT scans of your head and cervical spine. It is important to rest and limit your heavy lifting/activity. Upon discharge from the hospital: * Continue multimodal pain regimen -- Tylenol ([id number]), lidocaine patches every 12 hours, and oxycodone 5 mg every 6 hours as needed for breakthrough pain. * Do NOT drive or operate heavy machinery while taking oxycodone as it is a narcotic medication. * Continue to use the incentive spirometer provided. Try to do the exercises hourly while awake. This will help expand your lungs and reduce risk for infection from developing. * Follow-up with your PCP in 1-2 weeks. Please return to the hospital if you experience any of the following: Chest p ain, shortness of breath, difficulty breathing, lightheadedness/dizziness, passing out, confusion, or any other symptoms concerning for you. Home care * Rest. Don't do any heavy lifting or strenuous exertion until the pain goes away. * It hurts to breathe when you have a broken rib. This puts you at risk of getting pneumonia from poor airflow through your lungs. To prevent this: - Take a few very deep breaths once an hour while you're awake. Breathe out through pursed lips as if you are blowing up a balloon. If possible, actually blow up a balloon or a rubber glove. This exercise builds up pressure inside the lung and prevents collapse of the small air sacs of the lung. This exercise may cause some pain at the site of injury. This is normal. - You may have gotten a breathing exercise device called an incentive spirometer. Use it at least 4 times a day, or as directed. * Apply an ice pack over the injured area for 15 to 20 minutes every 1 to 2 hours. Do this for the first 24 to 48 hours. To make an ice pack, put ice cubes in a plastic bag that seals at the top. Wrap the bag in a clean, thin towel or cloth. Never put ice or an ice pack directly on your skin. Keep using ice packs as needed to ease pain and swelling. * You may use [id number] pain medicine to control pain, unless another pain medicine was prescribed. If you have chronic liver or kidney disease or ever had a stomach ulcer, gastrointestinal bleeding, or take a blood thinner, talk with your healthcare provider before using these medicines. Total Time Total Time Spent Total Time Spent (In Minutes): Greater than 30 minutes spent completing this discharge process including direct patient care, medication reconciliation, documentation, review of labs and images, and coordination of care. Coding Level of Care Code 24011 INP/OBS DISCH >30 MIN Diagnoses Sternal fracture S22.20XA Benign prostatic hyperplasia with urinary obstruction N40.1; N13.8
== END 2024-08-31 12:59 | disposition home or self-care (01) ==
LOC: 2N 09:47 → ED 09:47 → SUATTDRO 14:18 → 2N 15:58